=== PATIENT | female | born 1955 | race Two or more races ===

== ENCOUNTER 2017-05-11 22:00 | Inpatient (IN) | payer MEDICARE, OTHER ==
[~2017-05-11] VITALS: Ht 152.4 cm; Wt 107.4 kg
[2017-05-11 22:56] LABS: Basophils # (auto) 0 uL; Basophils % (auto) 0.3 % (0.0-2.0); CONDITION Y; DEFINITIVE SEE PRINTOUT; Eosinophils # (auto) 0 uL; Eosinophils % (auto) 0.5 % (0.0-7.0); Hematocrit 34.3 % (36.0-46.0); Hemoglobin 11.6 g/dL (12.2-16.2); Lymphocytes # (auto) 0.8 uL; Lymphocytes % (auto) 9.5 % (10.0-50.0); Mean Corpuscular Hemoglobin 34.3 pg (28.0-32.0); Mean Corpuscular Hgb Conc. 33.7 g/dL (32.0-36.0); Mean Corpuscular Volume 101.6 fL (80.0-100.0); Mean Platelet Volume 10.8 fL (7.4-10.4); Monocytes # (auto) 0.6 uL; Monocytes % (auto) 6.7 % (0.0-12.0); Neutrophils # (auto) 7.3 uL; Platelet Count (auto) 225 10^3/uL (140-450); Red Cell Distribution Width 13.5 % (11.6-16.0); White Blood Cell 8.8 10^3/uL (4.4-10.8)
[2017-05-11 23:15] LABS: Albumin 3.5 g/dL (3.4-5.0); Anion Gap 11 (5-15); Aspartate Aminotransferase 16 U/L (15-37); BUN/Creatinine Ratio 7.1; Blood Urea Nitrogen 29 mg/dL (7-18); Calcium 7.7 mg/dL (8.5-10.1); Carbon Dioxide 26 mmol/L (21-32); Chloride 98 mmol/L (98-107); GFR African American 14 mL/min; GFR Non-African American 12 mL/min; Glucose 250 mg/dL (74-106); Potassium 4.4 mmol/L (3.5-5.1); Sodium 135 mmol/L (136-145)
[2017-05-11 23:19] LABS: Alkaline Phosphatase 154 U/L (45-117); Bilirubin, Total 0.3 mg/dL (0.2-1.0); Total Protein 8.6 g/dL (6.4-8.2)
[2017-05-11 23:24] LABS: INR 0.98 (0.9-1.15); Partial Thromboplastin Time 29.4 sec (22.64-33.71); Prothrombin Time 10.7 sec (9.37-12.3)
[2017-05-11 23:31] LABS: Temperature: 21.7 C (20.0-25.0)
[2017-05-11] MEDS ORDERED: ACETAMINOPHEN 325 MG TAB PO ONE (23:45)
[2017-05-12] LABS: Lactic Acid w/Reflex 2.2 mmol/L (0.4-2.0)
[2017-05-12 00:02] LABS: REFLEX LACTIC ACID YES OR NO YES
[2017-05-12] MEDS ORDERED: cefTRIAXone 1GM/50ML D5W 50 ML IV ONE (02:45)
[2017-05-12] MEDS ORDERED: ACETAMINOPHEN 325 MG TAB PO ONE (05:15)
[2017-05-12] MEDS ORDERED: ONDANSETRON HCL 4 MG/2 ML VIAL IV PRN (06:15)
[2017-05-12] MEDS ORDERED: HYDROcodone-ACET 5/325MG TAB PO PRN (06:15)
[2017-05-12] MEDS ORDERED: VANCOMYCIN PER PHARMACY 0 MG IV SCH (06:15)
[2017-05-12] MEDS ORDERED: NITROGLYCERIN 0.4 MG SL TAB SL PRN (06:15)
[2017-05-12] MEDS ORDERED: TEMAZEPAM 15 MG CAP PO PRN (06:15)
[2017-05-12] MEDS ORDERED: MORPHINE SULF INJ 2 MG/ML SYRINGE 1ML IV PRN (06:15)
[2017-05-12] MEDS ORDERED: DEXTROSE (50%) 50ML SYRG IV PRN (06:15)
[2017-05-12 06:18] LABS: Urine RBC None Seen /hpf (0 - 4)
[2017-05-12] MEDS ORDERED: VANCOMYCIN 1,500 MG in SODIUM CHL 0.9% 250 ML IV ONE (06:45)
[2017-05-12 06:48] LABS: Urine Bilirubin Negative (Negative); Urine Blood Negative /uL (Negative); Urine Color Yellow (Yellow); Urine Ketone Negative (Negative); Urine Nitrite Negative (Negative); Urine Urobilinogen Normal (Negative); Urine pH 8.5 (5.0-8.0)
[2017-05-12 06:49] LABS: Urine Glucose 3+ mg/dL (Normal)
[2017-05-12 08:26] VITALS: BP 110/50
[2017-05-12 09:00] VITALS: BP 110/50
[2017-05-12] MEDS: cefTRIAXone 1GM/50ML D5W 50 ML IV SCH (09:27)
[2017-05-12] MEDS: SEVELAMER 800 MG TAB PO SCH ×3 (09:28→17:56)
[2017-05-12] MEDS: NIFEdipine ER 30 MG TAB PO SCH (09:51)
[2017-05-12] MEDS: PANTOPRAZOLE 40 MG TAB PO SCH (09:53)
[2017-05-12] MEDS: ENOXAPARIN SOD 30 MG/0.3 ML SYRINGE SC SCH (09:53)
[2017-05-12] MEDS: ACCU-CHEK COMFORT CURVE STRIP VI SCH ×3 (11:41→23:57)
[2017-05-12] MEDS: InsuLIN REG 1unit/0.01ml Soln (100units/ml) SC SCH ×3 (12:00→23:57)
[2017-05-12 13:00] VITALS: BP 126/82
[2017-05-12] MEDS: cloNIDine HCL 0.1 MG TAB PO SCH ×2 (14:11→21:45)
[2017-05-12 17:00] VITALS: BP 152/48
[2017-05-12] MEDS: FUROSEMIDE 20 MG TAB PO SCH (17:57)
[2017-05-12] MEDS: ACETAMINOPHEN 325 MG TAB PO PRN (18:30)
[2017-05-12 20:00] VITALS: BP 134/51
[2017-05-12] MEDS: ATORVASTATIN 20 MG TAB PO SCH (21:45)
[2017-05-12 22:06] VITALS: BP 134/51
[2017-05-13] MEDS: ACETAMINOPHEN 325 MG TAB PO PRN (03:50)
[2017-05-13 05:00] VITALS: BP 189/72
[2017-05-13] MEDS: FUROSEMIDE 20 MG TAB PO SCH ×2 (05:47→17:34)
[2017-05-13] MEDS: InsuLIN REG 1unit/0.01ml Soln (100units/ml) SC SCH ×3 (05:47→17:53)
[2017-05-13] MEDS: cloNIDine HCL 0.1 MG TAB PO SCH ×3 (05:47→22:00)
[2017-05-13] MEDS: ACCU-CHEK COMFORT CURVE STRIP VI SCH ×3 (05:48→17:53)
[2017-05-13 05:51] LABS: Basophils # (auto) 0 uL; Basophils % (auto) 0.2 % (0.0-2.0); CONDITION Y; Eosinophils # (auto) 0 uL; Eosinophils % (auto) 0.1 % (0.0-7.0); Hematocrit 30.5 % (36.0-46.0); Hemoglobin 10.6 g/dL (12.2-16.2); Lymphocytes # (auto) 0.6 uL; Lymphocytes % (auto) 5.4 % (10.0-50.0); Mean Corpuscular Hemoglobin 35.2 pg (28.0-32.0); Mean Corpuscular Hgb Conc. 34.8 g/dL (32.0-36.0); Mean Corpuscular Volume 101.3 fL (80.0-100.0); Mean Platelet Volume 10.9 fL (7.4-10.4); Monocytes # (auto) 0.7 uL; Monocytes % (auto) 5.6 % (0.0-12.0); Neutrophils # (auto) 10.5 uL; Neutrophils % (auto) 88.7 % (37.0-80.0); Platelet Count (auto) 183 10^3/uL (140-450); SUSPECT SEE PRINTOUT; White Blood Cell 11.9 10^3/uL (4.4-10.8)
[2017-05-13 06:16] LABS: Albumin 2.8 g/dL (3.4-5.0); BUN/Creatinine Ratio 7.9; Bilirubin, Total 0.3 mg/dL (0.2-1.0); Calcium 8.3 mg/dL (8.5-10.1); Potassium 4.4 mmol/L (3.5-5.1); Total Protein 7.2 g/dL (6.4-8.2)
[2017-05-13 08:00] VITALS: BP 165/69
[2017-05-13 08:55] VITALS: BP 165/69
[2017-05-13] MEDS: cefTRIAXone 1GM/50ML D5W 50 ML IV SCH (08:56)
[2017-05-13] MEDS: SEVELAMER 800 MG TAB PO SCH ×3 (08:57→17:53)
[2017-05-13] MEDS: ENOXAPARIN SOD 30 MG/0.3 ML SYRINGE SC SCH (09:27)
[2017-05-13] MEDS: PANTOPRAZOLE 40 MG TAB PO SCH (09:27)
[2017-05-13] MEDS: NIFEdipine ER 30 MG TAB PO SCH (09:29)
[2017-05-13 12:42] VITALS: BP 194/72
[2017-05-13] MEDS ORDERED: INSLANTI SC (16:13)
[2017-05-13] MEDS ORDERED: CINA30TA2 PO (16:30)
[2017-05-13] MEDS ORDERED: SEVE800T8 PO (16:30)
[2017-05-13] MEDS ORDERED: [UNRECOGNIZED DRUG - CODE] PO (16:30)
[2017-05-13] MEDS ORDERED: SIMV-8 PO (16:30)
[2017-05-13] MEDS ORDERED: TRAM50TA2 PO (16:30)
[2017-05-13] MEDS ORDERED: FUR20T PO (16:30)
[2017-05-13] MEDS ORDERED: CLON0.2T PO (16:30)
[2017-05-13] MEDS ORDERED: NIFE90TA25 PO (16:30)
[2017-05-13] MEDS ORDERED: GABA-497 PO (16:30)
[2017-05-13] MEDS ORDERED: FERR1TAB17 PO (16:30)
[2017-05-13 17:27] VITALS: BP 107/44
[2017-05-13] MEDS ORDERED: VANCOMYCIN 1GM/250ML D5W 250 ML IV ONE (20:00)
[2017-05-13 22:00] VITALS: BP 104/51
[2017-05-13] MEDS: ATORVASTATIN 20 MG TAB PO SCH (23:17)
[2017-05-14] MEDS: ACCU-CHEK COMFORT CURVE STRIP VI SCH ×4 (00:15→17:31)
[2017-05-14] MEDS: InsuLIN REG 1unit/0.01ml Soln (100units/ml) SC SCH ×4 (00:15→17:31)
[2017-05-14 05:00] VITALS: BP 119/50
[2017-05-14] MEDS: cloNIDine HCL 0.1 MG TAB PO SCH ×3 (06:00→22:07)
[2017-05-14 06:12] LABS: Albumin 2.8 g/dL (3.4-5.0); BUN/Creatinine Ratio 6.4; Bilirubin, Total 0.4 mg/dL (0.2-1.0); Calcium 8.6 mg/dL (8.5-10.1); Total Protein 7.5 g/dL (6.4-8.2)
[2017-05-14 06:20] LABS: Potassium 3.9 mmol/L (3.5-5.1)
[2017-05-14] MEDS: FUROSEMIDE 20 MG TAB PO SCH ×2 (06:44→17:30)
[2017-05-14] MEDS: SEVELAMER 800 MG TAB PO SCH ×3 (08:03→17:31)
[2017-05-14 09:00] VITALS: BP 113/62
[2017-05-14] MEDS: ENOXAPARIN SOD 30 MG/0.3 ML SYRINGE SC SCH (10:47)
[2017-05-14] MEDS: PANTOPRAZOLE 40 MG TAB PO SCH (10:47)
[2017-05-14] MEDS: NIFEdipine ER 30 MG TAB PO SCH (10:47)
[2017-05-14] MEDS ORDERED: ceFAZolin 1GM 2 GM in D5W 5% 100 ML IV ONE (12:30)
[2017-05-14] MEDS ORDERED: ceFAZolin 1GM/50ML D5W 50 ML IV ONE (12:30)
[2017-05-14 13:19] VITALS: BP 164/57
[2017-05-14 17:00] VITALS: BP 141/73
[2017-05-14 21:44] VITALS: BP 129/50
[2017-05-14] MEDS: ATORVASTATIN 20 MG TAB PO SCH (22:07)
[2017-05-15] MEDS: ACETAMINOPHEN 325 MG TAB PO PRN ×2 (01:22→20:12)
[2017-05-15 05:00] VITALS: BP 127/45
[2017-05-15] MEDS: ACCU-CHEK COMFORT CURVE STRIP VI SCH ×5 (06:00→23:59)
[2017-05-15] MEDS: InsuLIN REG 1unit/0.01ml Soln (100units/ml) SC SCH ×5 (06:00→23:59)
[2017-05-15] MEDS: cloNIDine HCL 0.1 MG TAB PO SCH ×3 (06:58→21:32)
[2017-05-15] MEDS: FUROSEMIDE 20 MG TAB PO SCH ×2 (06:58→18:24)
[2017-05-15 08:00] VITALS: BP 127/45
[2017-05-15 08:40] LABS: Potassium 4.1 mmol/L (3.5-5.1)
[2017-05-15 08:41] LABS: Albumin 2.8 g/dL (3.4-5.0); BUN/Creatinine Ratio 7.8; Bilirubin, Total 0.2 mg/dL (0.2-1.0); Calcium 8.3 mg/dL (8.5-10.1); Total Protein 7.5 g/dL (6.4-8.2)
[2017-05-15 09:00] VITALS: BP 143/58
[2017-05-15] MEDS: NIFEdipine ER 30 MG TAB PO SCH (09:48)
[2017-05-15] MEDS: SEVELAMER 800 MG TAB PO SCH ×3 (09:48→18:24)
[2017-05-15] MEDS: PANTOPRAZOLE 40 MG TAB PO SCH (09:49)
[2017-05-15] MEDS: ENOXAPARIN SOD 30 MG/0.3 ML SYRINGE SC SCH (09:50)
[2017-05-15] MEDS ORDERED: EPOETIN ALFA 10,000 UNIT/1 ML VIAL IV ONE (10:45)
[2017-05-15 12:05] VITALS: BP 152/65
[2017-05-15 16:31] VITALS: BP 139/71
[2017-05-15 16:37] LABS: Basophils # (auto) 0 uL; Basophils % (auto) 0.3 % (0.0-2.0); CONDITION Y; Eosinophils # (auto) 0.1 uL; Eosinophils % (auto) 0.9 % (0.0-7.0); Hematocrit 33.8 % (36.0-46.0); Hemoglobin 11.7 g/dL (12.2-16.2); Lymphocytes # (auto) 1.7 uL; Lymphocytes % (auto) 27.3 % (10.0-50.0); Mean Corpuscular Hemoglobin 34.4 pg (28.0-32.0); Mean Corpuscular Hgb Conc. 34.5 g/dL (32.0-36.0); Mean Corpuscular Volume 99.7 fL (80.0-100.0); Mean Platelet Volume 11.3 fL (7.4-10.4); Monocytes # (auto) 0.5 uL; Monocytes % (auto) 8.3 % (0.0-12.0); Neutrophils # (auto) 3.9 uL; Neutrophils % (auto) 63.2 % (37.0-80.0); Platelet Count (auto) 218 10^3/uL (140-450); Red Cell Distribution Width 13.5 % (11.6-16.0); White Blood Cell 6.1 10^3/uL (4.4-10.8)
[2017-05-15 16:46] LABS: INR 0.9 (0.9-1.15); Partial Thromboplastin Time 29.2 sec (22.64-33.71); Prothrombin Time 9.8 sec (9.37-12.3)
[2017-05-15] MEDS: ATORVASTATIN 20 MG TAB PO SCH (21:31)
[2017-05-15 22:00] VITALS: BP 149/60
[2017-05-16 05:00] VITALS: BP 153/75
[2017-05-16] MEDS: InsuLIN REG 1unit/0.01ml Soln (100units/ml) SC SCH ×4 (06:00→23:56)
[2017-05-16] MEDS: cloNIDine HCL 0.1 MG TAB PO SCH ×3 (06:01→21:46)
[2017-05-16] MEDS: FUROSEMIDE 20 MG TAB PO SCH ×2 (06:01→18:06)
[2017-05-16] MEDS: ACCU-CHEK COMFORT CURVE STRIP VI SCH ×4 (06:40→23:47)
[2017-05-16 08:00] VITALS: BP 153/75
[2017-05-16 09:00] VITALS: BP 125/52
[2017-05-16] MEDS ORDERED: diphenhdrAMINE HCL 50 MG/1 ML VL IV ONE (10:00)
[2017-05-16] MEDS ORDERED: LIDOCAINE VISCOUS 2% 15ML UD PO ONE (10:00)
[2017-05-16] MEDS ORDERED: fentaNYL CITRATE 100 MCG/2 ML VL IV ONE (10:00)
[2017-05-16] MEDS ORDERED: MIDAZOLAM HCL 1MG/1ML-2 ML VIAL IV ONE ×2 (10:00)
[2017-05-16] MEDS ORDERED: FLUMAZENIL 0.1 MG/ML INJ 10ML MDV IV ONE (10:04)
[2017-05-16] MEDS ORDERED: NALOXONE HCL 0.4 MG/ML VIAL ONE (10:04)
[2017-05-16] MEDS: SEVELAMER 800 MG TAB PO SCH ×3 (11:58→18:06)
[2017-05-16] MEDS: PANTOPRAZOLE 40 MG TAB PO SCH (11:58)
[2017-05-16] MEDS: NIFEdipine ER 30 MG TAB PO SCH (11:59)
[2017-05-16] MEDS: ENOXAPARIN SOD 30 MG/0.3 ML SYRINGE SC SCH (12:00)
[2017-05-16 13:40] VITALS: BP 138/69
[2017-05-16 17:06] VITALS: BP 165/60
[2017-05-16] MEDS: ATORVASTATIN 20 MG TAB PO SCH (21:46)
[2017-05-16 22:00] VITALS: BP 145/56
[2017-05-17 05:00] VITALS: BP 136/67
[2017-05-17] MEDS: ACCU-CHEK COMFORT CURVE STRIP VI SCH ×2 (05:33→12:00)
[2017-05-17] MEDS: FUROSEMIDE 20 MG TAB PO SCH (05:33)
[2017-05-17] MEDS: cloNIDine HCL 0.1 MG TAB PO SCH (05:33)
[2017-05-17] MEDS: InsuLIN REG 1unit/0.01ml Soln (100units/ml) SC SCH ×2 (05:36→12:09)
[2017-05-17] MEDS: SEVELAMER 800 MG TAB PO SCH ×2 (08:27→12:00)
[2017-05-17 09:00] VITALS: BP 106/57
[2017-05-17] MEDS ORDERED: CEPHALEXIN 250 MG CAP PO SCH ×2 (12:00→14:00)
[2017-05-17] MEDS: ENOXAPARIN SOD 30 MG/0.3 ML SYRINGE SC SCH (12:08)
[2017-05-17] MEDS: NIFEdipine ER 30 MG TAB PO SCH (12:09)
[2017-05-17] MEDS: PANTOPRAZOLE 40 MG TAB PO SCH (12:09)
[2017-05-17 12:14] VITALS: BP 151/95
[2017-05-17 13:44] VITALS: BP 147/89
== END 2017-05-17 13:25 | disposition home or self-care (01) | DRG 314 ==
LOC: ER 22:07 → TELE 22:08 → TELE-WESTW 05-12 08:26
PROVIDERS: ADMIT Internal Medicine; ATTEND Internal Medicine Pulmonary Disease
PROC: 5A1D60Z (ICD-10-PCS; 2017-05-13)
PROC: B246ZZ4 Ultrasonography of Right and Left Heart, Transesophageal (ICD-10-PCS; principal; 2017-05-16)
DX: T82.7XXA Infection and inflammatory reaction due to other cardiac and vascular devices, implants and grafts, initial encounter (principal); N18.6 End stage renal disease; A41.01 Sepsis due to Methicillin susceptible Staphylococcus aureus; N10 Acute pyelonephritis; E87.1 Hypo-osmolality and hyponatremia; I13.2 Hypertensive heart and chronic kidney disease with heart failure and with stage 5 chronic kidney disease, or end stage renal disease; Z68.42 Body mass index [BMI] 45.0-49.9, adult; E44.0 Moderate protein-calorie malnutrition; D63.8 Anemia in other chronic diseases classified elsewhere; E66.01 Morbid (severe) obesity due to excess calories; I72.2 Aneurysm of renal artery; K42.9 Umbilical hernia without obstruction or gangrene; D63.1 Anemia in chronic kidney disease; E11.22 Type 2 diabetes mellitus with diabetic chronic kidney disease; E11.65 Type 2 diabetes mellitus with hyperglycemia; E78.5 Hyperlipidemia, unspecified; I34.0 Nonrheumatic mitral (valve) insufficiency; I50.9 Heart failure, unspecified; Z82.49 Family history of ischemic heart disease and other diseases of the circulatory system; Z99.2 Dependence on renal dialysis; Z83.3 Family history of diabetes mellitus; Z89.429 Acquired absence of other toe(s), unspecified side; Y83.9 Surgical procedure, unspecified as the cause of abnormal reaction of the patient, or of later complication, without mention of misadventure at the time of the procedure
CPT/HCPCS: 36415; 71010; 74176; 80053; 80202; 81001; 82962; 83036; 83605; 83735; 83880; 84484; 85025; 85610; 85730; 87040; 87077; 87147; 87186; 90935; 93005; 93312; 96365; 96375; J0690; J0696; J0885; J1815; J2250; J7060

== ENCOUNTER 2017-11-19 16:52 | Inpatient (IN) | payer MEDICARE ==
[~2017-11-19] VITALS: Ht 149.9 cm; Wt 106.6 kg
[~2017-11-19 16:52] MED LIST: CINA30TA2 PO; CLON0.2T PO; FERR1TAB17 PO; FUR20T PO; GABA300C10 PO; INSLANTI SC; NIFE90TA25 PO; SEVE800T8 PO; SIMV-8 PO; TRAM50TA2 PO; [UNRECOGNIZED DRUG - CODE] PO
[2017-11-19 18:30] LABS: Basophils # (auto) 0.1 uL; Basophils % (auto) 0.7 % (0.0-2.0); Eosinophils # (auto) 0.1 uL; Eosinophils % (auto) 1.2 % (0.0-7.0); Hematocrit 33.8 % (36.0-46.0); Hemoglobin 11.4 g/dL (12.2-16.2); Lymphocytes # (auto) 1.4 uL; Lymphocytes % (auto) 18.4 % (10.0-50.0); Mean Corpuscular Hemoglobin 33.7 pg (28.0-32.0); Mean Corpuscular Hgb Conc. 33.7 g/dL (32.0-36.0); Monocytes # (auto) 0.6 uL; Monocytes % (auto) 7.4 % (0.0-12.0); Neutrophils # (auto) 5.5 uL; Neutrophils % (auto) 72.3 % (37.0-80.0); Nucleated Red Blood Cells % 0.2 %; Platelet Count (auto) 239 10^3/uL (140-450); Red Blood Cells 3.38 10^6/uL (4.0-5.20); Red Cell Distribution Width 13.4 % (11.8-14.3); White Blood Cell 7.6 10^3/uL (4.4-10.8)
[2017-11-19 18:57] LABS: Alanine Aminotransferase 23 U/L (13-56); Albumin 3.5 g/dL (3.4-5.0); Alkaline Phosphatase 153 U/L (45-117); Anion Gap 13 (5-15); Aspartate Aminotransferase 19 U/L (15-37); BUN/Creatinine Ratio 8.7; Bilirubin, Total 0.3 mg/dL (0.2-1.0); Blood Urea Nitrogen 36 mg/dL (7-18); Carbon Dioxide 26 mmol/L (21-32); Chloride 96 mmol/L (98-107); GFR African American 14 mL/min; GFR Non-African American 12 mL/min; Glucose 125 mg/dL (74-106); Magnesium 2.5 mg/dL (1.6-2.6); Potassium 4.2 mmol/L (3.5-5.1); Sodium 135 mmol/L (136-145); Total Protein 8.7 g/dL (6.4-8.2)
[2017-11-19] MEDS ORDERED: SODIUM CHLORIDE 0.9% 1,000 ML IV ONE (21:45)
[2017-11-20] MEDS ORDERED: KETOROLAC TROMETH 30 MG/ML 1ML VIAL IV ONE (01:00)
[2017-11-20] MEDS ORDERED: cloNIDine HCL 0.1 MG TAB ONE (01:45)
[2017-11-20] MEDS ORDERED: cloNIDine HCL 0.1 MG TAB PO ONE ×2 (01:45→19:00)
[2017-11-20] MEDS ORDERED: MORPHINE SULFATE 4 MG/ML SYR/VIAL IV PRN (05:00)
[2017-11-20] MEDS ORDERED: ONDANSETRON HCL 4 MG/2 ML VIAL IV PRN (05:00)
[2017-11-20] MEDS ORDERED: DEXTROSE (50%) 50ML SYRG IV PRN (05:00)
[2017-11-20] MEDS ORDERED: cloNIDine HCL 0.1 MG TAB PO PRN (05:00)
[2017-11-20] MEDS ORDERED: TEMAZEPAM 15 MG CAP PO PRN (05:00)
[2017-11-20] MEDS ORDERED: HYDROcodone-ACET 5/325MG TAB PO PRN (05:00)
[2017-11-20] MEDS ORDERED: ACETAMINOPHEN 325 MG TAB PO PRN (05:00)
[2017-11-20] MEDS ORDERED: FUROSEMIDE 20 MG TAB PO SCH (06:00)
[2017-11-20] MEDS ORDERED: cloNIDine HCL 0.1 MG TAB PO SCH (06:00)
[2017-11-20] MEDS: InsuLIN REG 1unit/0.01ml Soln (100units/ml) SC SCH ×3 (06:00→17:35)
[2017-11-20] MEDS: ACCU-CHEK COMFORT CURVE STRIP VI SCH ×3 (06:21→17:36)
[2017-11-20 09:00] VITALS: BP 170/88
[2017-11-20] MEDS ORDERED: PANTOPRAZOLE 40 MG/10 ML VIAL IV SCH (10:00)
[2017-11-20] MEDS: NIFEdipine ER 30 MG TAB PO SCH (10:00)
[2017-11-20] MEDS ORDERED: HEPARIN SODIUM (PORCINE) 5000 UNITS/ML 1ML VIAL SC SCH (10:00)
[2017-11-20] MEDS: DOCUSATE SOD 100 MG CAP PO SCH ×2 (10:30→22:00)
[2017-11-20] MEDS ORDERED: GASTROGRAFIN 120 ML SOL ONE (11:11)
[2017-11-20] MEDS: cloNIDine HCL 0.1 MG TAB PO SCH ×2 (13:34→23:01)
[2017-11-20 14:00] VITALS: BP 170/91
[2017-11-20 17:00] VITALS: BP 202/77
[2017-11-20] MEDS ORDERED: ASPI81TA27 PO (17:43)
[2017-11-20] MEDS ORDERED: LABETALOL HCL 5 MG/ML ML 20ML VIAL IV PRN (19:00)
[2017-11-20] MEDS ORDERED: NIFEdipine 10 MG CAP PO ONE (19:00)
[2017-11-20] MEDS ORDERED: ATORVASTATIN 20 MG TAB PO SCH (22:00)
[2017-11-20] MEDS: PANTOPRAZOLE 40 MG TAB PO SCH (22:21)
[2017-11-20 23:10] VITALS: BP 178/66
[2017-11-21 05:10] VITALS: BP 145/56
[2017-11-21] MEDS: ACCU-CHEK COMFORT CURVE STRIP VI SCH ×4 (06:00→18:27)
[2017-11-21] MEDS: InsuLIN REG 1unit/0.01ml Soln (100units/ml) SC SCH ×4 (06:00→18:00)
[2017-11-21] MEDS ORDERED: cloNIDine HCL 0.1 MG TAB PO SCH (06:00)
[2017-11-21 06:22] LABS: Potassium 3.8 mmol/L (3.5-5.1)
[2017-11-21 06:29] LABS: Albumin 3.1 g/dL (3.4-5.0); BUN/Creatinine Ratio 7.9
[2017-11-21 06:32] LABS: Bilirubin, Total 0.4 mg/dL (0.2-1.0); Total Protein 7.2 g/dL (6.4-8.2)
[2017-11-21 06:36] LABS: Basophils # (auto) 0.1 uL; Basophils % (auto) 1.1 % (0.0-2.0); Eosinophils # (auto) 0.1 uL; Eosinophils % (auto) 1.9 % (0.0-7.0); Hematocrit 33.1 % (36.0-46.0); Hemoglobin 10.9 g/dL (12.2-16.2); Lymphocytes # (auto) 1.5 uL; Mean Corpuscular Hemoglobin 33.4 pg (28.0-32.0); Mean Corpuscular Hgb Conc. 32.8 g/dL (32.0-36.0); Mean Corpuscular Volume 101.8 fL (80.0-100.0); Monocytes # (auto) 0.6 uL; Monocytes % (auto) 9.5 % (0.0-12.0); Neutrophils # (auto) 3.7 uL; Neutrophils % (auto) 62.5 % (37.0-80.0); Nucleated Red Blood Cells % 0.1 %; Red Blood Cells 3.25 10^6/uL (4.0-5.20); Red Cell Distribution Width 13.8 % (11.8-14.3)
[2017-11-21] MEDS: cloNIDine HCL 0.1 MG TAB PO SCH ×2 (06:49→14:04)
[2017-11-21 08:00] VITALS: BP 132/70
[2017-11-21 08:16] LABS: INR 0.99 (0.9-1.15); Partial Thromboplastin Time 28.6 sec (22.64-33.71); Prothrombin Time 10.8 sec (9.37-12.3)
[2017-11-21] MEDS ORDERED: LIDOCAINE VISCOUS 2% 15ML UD ONE (08:17)
[2017-11-21] MEDS ORDERED: MIDAZOLAM HCL 5 MG/ML-1ML VIAL ONE (08:17)
[2017-11-21] MEDS ORDERED: diphenhdrAMINE HCL 50 MG/1 ML VL ONE (08:17)
[2017-11-21] MEDS ORDERED: fentaNYL CITRATE 100 MCG/2 ML VL ONE (08:17)
[2017-11-21] MEDS ORDERED: SODIUM CHLORIDE LOCK 10 ML ONE (08:19)
[2017-11-21 08:35] VITALS: BP 132/70
[2017-11-21 08:37] LABS: Platelet Count (auto) 215 10^3/uL (140-450)
[2017-11-21] MEDS ORDERED: SODIUM CHL 0.9% 1000 ML BAG XX ONE (10:15)
[2017-11-21] MEDS: PANTOPRAZOLE 40 MG TAB PO SCH (10:59)
[2017-11-21] MEDS: NIFEdipine ER 30 MG TAB PO SCH (10:59)
[2017-11-21] MEDS: DOCUSATE SOD 100 MG CAP PO SCH (11:00)
[2017-11-21 13:00] VITALS: BP 150/79
[2017-11-21 17:09] VITALS: BP 162/72
[2017-11-21 18:03] VITALS: BP 162/72
== END 2017-11-21 20:14 | disposition home or self-care (01) | DRG 383 ==
LOC: ER 17:02 → OVERFLOW 17:03 → CENTRAL 11-20 08:55
PROVIDERS: ADMIT Nurse Practitioner; ATTEND Family Medicine
PROC: 5A1D70Z Performance of Urinary Filtration, Intermittent, Less than 6 Hours Per Day (ICD-10-PCS; 2017-11-21)
PROC: 0DB68ZX Excision of Stomach, Via Natural or Artificial Opening Endoscopic, Diagnostic (ICD-10-PCS; principal; 2017-11-21 09:45)
DX: K25.9 Gastric ulcer, unspecified as acute or chronic, without hemorrhage or perforation (principal); N18.6 End stage renal disease; I13.2 Hypertensive heart and chronic kidney disease with heart failure and with stage 5 chronic kidney disease, or end stage renal disease; E11.22 Type 2 diabetes mellitus with diabetic chronic kidney disease; E66.01 Morbid (severe) obesity due to excess calories; Z68.42 Body mass index [BMI] 45.0-49.9, adult; K29.70 Gastritis, unspecified, without bleeding; K29.80 Duodenitis without bleeding; E21.3 Hyperparathyroidism, unspecified; K26.9 Duodenal ulcer, unspecified as acute or chronic, without hemorrhage or perforation; D64.9 Anemia, unspecified; E78.5 Hyperlipidemia, unspecified; R51 Headache; I50.9 Heart failure, unspecified; K59.00 Constipation, unspecified; Z82.49 Family history of ischemic heart disease and other diseases of the circulatory system; Z83.3 Family history of diabetes mellitus; Z99.2 Dependence on renal dialysis; Z79.899 Other long term (current) drug therapy; Z79.4 Long term (current) use of insulin
CPT/HCPCS: 36415; 43239; 70450; 71045; 74176; 74250; 80053; 82962; 83735; 83880; 84484; 85025; 85610; 85730; 87400; 90935; 93005; 96361; 96374; J1642; J1815; J1885; J2250

== ENCOUNTER 2017-12-03 05:24 | Inpatient (IN) | payer MEDICARE ==
[~2017-12-03] VITALS: Ht 149.9 cm; Wt 107.3 kg
[~2017-12-03 05:24] MED LIST changes: +ASPI81TA27 PO
[2017-12-03 06:11] LABS: Basophils # (auto) 0.1 uL; Basophils % (auto) 0.6 % (0.0-2.0); Eosinophils # (auto) 0.1 uL; Eosinophils % (auto) 1.5 % (0.0-7.0); Hematocrit 30.8 % (36.0-46.0); Hemoglobin 10.3 g/dL (12.2-16.2); Lymphocytes # (auto) 1.3 uL; Lymphocytes % (auto) 14.2 % (10.0-50.0); Mean Corpuscular Hemoglobin 33.7 pg (28.0-32.0); Mean Corpuscular Hgb Conc. 33.5 g/dL (32.0-36.0); Mean Corpuscular Volume 100.6 fL (80.0-100.0); Monocytes # (auto) 0.8 uL; Monocytes % (auto) 8.6 % (0.0-12.0); Neutrophils # (auto) 6.8 uL; Neutrophils % (auto) 75.1 % (37.0-80.0); Platelet Count (auto) 206 10^3/uL (140-450); Red Blood Cells 3.06 10^6/uL (4.0-5.20); Red Cell Distribution Width 13.4 % (11.8-14.3)
[2017-12-03 06:34] LABS: Alanine Aminotransferase 19 U/L (13-56); Albumin 3.3 g/dL (3.4-5.0); Amylase 89 U/L (25-115); Anion Gap 9 (5-15); Aspartate Aminotransferase 14 U/L (15-37); BUN/Creatinine Ratio 8.8; Blood Urea Nitrogen 70 mg/dL (7-18); Carbon Dioxide 26 mmol/L (21-32); Chloride 100 mmol/L (98-107); GFR African American 7 mL/min; GFR Non-African American 5 mL/min; Glucose 83 mg/dL (74-106); Lipase 410 U/L (73-393); Magnesium 2.8 mg/dL (1.6-2.6); Potassium 4.9 mmol/L (3.5-5.1); Sodium 135 mmol/L (136-145)
[2017-12-03 06:39] LABS: Alkaline Phosphatase 142 U/L (45-117); Bilirubin, Total 0.3 mg/dL (0.2-1.0); Total Protein 7.8 g/dL (6.4-8.2)
[2017-12-03] MEDS ORDERED: DEXTROSE (50%) 50ML SYRG IV ONE (08:00)
[2017-12-03] MEDS ORDERED: LACTULOSE 20Gm/30ML SOLN PO PRN (11:30)
[2017-12-03] MEDS ORDERED: DEXTROSE (50%) 50ML SYRG IV PRN (11:30)
[2017-12-03] MEDS ORDERED: TEMAZEPAM 15 MG CAP PO PRN (11:30)
[2017-12-03] MEDS ORDERED: cloNIDine HCL 0.1 MG TAB PO PRN (11:30)
[2017-12-03] MEDS ORDERED: DOCUSATE SOD 100 MG CAP PO PRN (11:30)
[2017-12-03] MEDS: ACCU-CHEK COMFORT CURVE STRIP VI SCH ×3 (11:34→21:15)
[2017-12-03] MEDS: FLEET ENEMA(ADULT) 135 ML PR ONE ×2 (11:45→17:16)
[2017-12-03] MEDS ORDERED: GABAPENTIN 300 MG CAP PO ONE (11:45)
[2017-12-03] MEDS ORDERED: ASPirin-EC 81 mg tab PO ONE (11:45)
[2017-12-03] MEDS ORDERED: SEVELAMER 800 MG TAB PO SCH (12:00)
[2017-12-03] MEDS: Boost Glucose Control 8 Ounces PO SCH ×2 (12:03→18:01)
[2017-12-03] MEDS: InsuLIN REG 1unit/0.01ml Soln (100units/ml) SC SCH ×3 (12:07→21:26)
[2017-12-03] MEDS: SODIUM CHLOR 0.9% PF (SALINE LOCK) 10ML VIAL IV SCH ×2 (14:22→21:14)
[2017-12-03] MEDS: DOCUSATE SOD 100 MG CAP PO SCH ×2 (16:17→21:13)
[2017-12-03] MEDS: cloNIDine HCL 0.1 MG TAB PO SCH ×2 (16:17→21:12)
[2017-12-03] MEDS ORDERED: LORazepam 0.5 MG TAB PO PRN (16:30)
[2017-12-03 16:50] LABS: Urine Amorphous Crystal FEW /hpf (None Seen); Urine Bacteria FEW /hpf (None Seen); Urine Blood 1+ /uL (Negative); Urine WBC 56 /hpf (0 - 5)
[2017-12-03] MEDS ORDERED: FERROUS SULFATE 325 MG TAB PO SCH (18:00)
[2017-12-03] MEDS ORDERED: FUROSEMIDE 20 MG TAB PO SCH (18:00)
[2017-12-03 19:45] VITALS: BP 157/74
[2017-12-03] MEDS ORDERED: cefTRIAXone 1GM/10ml IVPUSH 10 ML IV ONE (20:00)
[2017-12-03] MEDS: traMADol HCL 50 MG TAB PO PRN (21:13)
[2017-12-03] MEDS: ATORVASTATIN 20 MG TAB PO SCH (21:13)
[2017-12-03] MEDS: PANTOPRAZOLE 40 MG TAB PO SCH (21:13)
[2017-12-03] MEDS: SENNA 8.6 MG TAB PO SCH (21:14)
[2017-12-03] MEDS: INSULIN LANTUS (GLARGINE) 1 /0.01ml (100units/ml) SC SCH (21:15)
[2017-12-03 22:00] VITALS: BP 157/74
[2017-12-03] MEDS ORDERED: FAMOTIDINE 20 MG TAB PO SCH (22:00)
[2017-12-04] VITALS (7 sets, daily range): BP systolic 114–170; BP diastolic 49–68
[2017-12-04] MEDS: ACETAMINOPHEN 325 MG TAB PO PRN ×2 (04:49→16:39)
[2017-12-04] MEDS: SODIUM CHLOR 0.9% PF (SALINE LOCK) 10ML VIAL IV SCH ×3 (05:55→22:13)
[2017-12-04] MEDS: cloNIDine HCL 0.1 MG TAB PO SCH ×3 (05:57→22:43)
[2017-12-04] MEDS: traMADol HCL 50 MG TAB PO PRN ×2 (06:03→22:33)
[2017-12-04] MEDS: ACCU-CHEK COMFORT CURVE STRIP VI SCH ×4 (06:13→22:14)
[2017-12-04] MEDS: InsuLIN REG 1unit/0.01ml Soln (100units/ml) SC SCH ×4 (06:14→22:30)
[2017-12-04 06:58] LABS: Basophils # (auto) 0 uL; Monocytes # (auto) 0.6 uL; Red Blood Cells 2.57 10^6/uL (4.0-5.20)
[2017-12-04 07:01] LABS: Basophils % (auto) 0.7 % (0.0-2.0); Eosinophils # (auto) 0.1 uL; Eosinophils % (auto) 0.8 % (0.0-7.0); Hematocrit 25.7 % (36.0-46.0); Hemoglobin 8.7 g/dL (12.2-16.2); Lymphocytes # (auto) 0.9 uL; Lymphocytes % (auto) 12.2 % (10.0-50.0); Mean Corpuscular Hemoglobin 33.9 pg (28.0-32.0); Mean Corpuscular Hgb Conc. 33.9 g/dL (32.0-36.0); Mean Corpuscular Volume 100.2 fL (80.0-100.0); Monocytes % (auto) 8.8 % (0.0-12.0); Neutrophils # (auto) 5.5 uL; Neutrophils % (auto) 77.5 % (37.0-80.0); Platelet Count (auto) 161 10^3/uL (140-450); Red Cell Distribution Width 13.2 % (11.8-14.3); White Blood Cell 7.1 10^3/uL (4.4-10.8)
[2017-12-04 07:19] LABS: Albumin 2.7 g/dL (3.4-5.0); BUN/Creatinine Ratio 9.7; Bilirubin, Total 0.4 mg/dL (0.2-1.0); Calcium 7.6 mg/dL (8.5-10.1); Potassium 4.6 mmol/L (3.5-5.1); Total Protein 6.9 g/dL (6.4-8.2)
[2017-12-04] MEDS: PANTOPRAZOLE 40 MG TAB PO SCH ×2 (09:19→22:14)
[2017-12-04] MEDS: NIFEdipine ER 30 MG TAB PO SCH (09:20)
[2017-12-04] MEDS: DOCUSATE SOD 100 MG CAP PO SCH ×2 (09:20→22:13)
[2017-12-04] MEDS: Boost Glucose Control 8 Ounces PO SCH ×3 (09:21→17:46)
[2017-12-04] MEDS: cefTRIAXone 1GM/10ml IVPUSH 10 ML IV SCH (09:21)
[2017-12-04] MEDS: MULTIPLE VITAMIN TAB PO SCH (09:21)
[2017-12-04] MEDS ORDERED: EPOETIN ALFA 10,000 UNIT/1 ML VIAL IV ONE (09:30)
[2017-12-04] MEDS ORDERED: GABAPENTIN 300 MG CAP PO SCH (10:00)
[2017-12-04] MEDS ORDERED: ASPirin-EC 81 mg tab PO SCH (10:00)
[2017-12-04] MEDS ORDERED: PATIENTS OWN MEDICATION PO SCH (10:00)
[2017-12-04] MEDS: CINACALCET HYDROCHLORIDE 30 MG TAB PO SCH (10:00)
[2017-12-04] MEDS ORDERED: VANCOMYCIN PER PHARMACY 0 MG IV SCH (14:00)
[2017-12-04] MEDS: ONDANSETRON HCL 4 MG/2 ML VIAL IV PRN (16:42)
[2017-12-04] MEDS ORDERED: VANCOMYCIN 1,250 MG in D5W 5% 250 ML IV ONE (17:00)
[2017-12-04] MEDS: ATORVASTATIN 20 MG TAB PO SCH (22:14)
[2017-12-04] MEDS: SENNA 8.6 MG TAB PO SCH (22:14)
[2017-12-04] MEDS: INSULIN LANTUS (GLARGINE) 1 /0.01ml (100units/ml) SC SCH (22:30)
[2017-12-05 01:12] LABS: Basophils # (auto) 0.1 uL; Basophils % (auto) 1.3 % (0.0-2.0); Eosinophils # (auto) 0 uL; Eosinophils % (auto) 0.1 % (0.0-7.0); Hematocrit 26.4 % (36.0-46.0); Lymphocytes # (auto) 0.9 uL; Lymphocytes % (auto) 8.8 % (10.0-50.0); Mean Corpuscular Hemoglobin 33.7 pg (28.0-32.0); Mean Corpuscular Hgb Conc. 33.9 g/dL (32.0-36.0); Mean Corpuscular Volume 99.4 fL (80.0-100.0); Monocytes # (auto) 1.1 uL; Monocytes % (auto) 10.9 % (0.0-12.0); Neutrophils # (auto) 7.7 uL; Neutrophils % (auto) 78.9 % (37.0-80.0); Platelet Count (auto) 148 10^3/uL (140-450); Red Blood Cells 2.66 10^6/uL (4.0-5.20); Red Cell Distribution Width 13.4 % (11.8-14.3); White Blood Cell 9.8 10^3/uL (4.4-10.8)
[2017-12-05 01:31] LABS: Albumin 2.7 g/dL (3.4-5.0); BUN/Creatinine Ratio 8.3; Calcium 7.7 mg/dL (8.5-10.1); Potassium 4.7 mmol/L (3.5-5.1)
[2017-12-05 01:34] LABS: Bilirubin, Total 0.4 mg/dL (0.2-1.0); Total Protein 7.2 g/dL (6.4-8.2)
[2017-12-05 05:00] VITALS: BP 116/44
[2017-12-05] MEDS: cloNIDine HCL 0.1 MG TAB PO SCH ×2 (06:00→14:56)
[2017-12-05] MEDS: SODIUM CHLOR 0.9% PF (SALINE LOCK) 10ML VIAL IV SCH (06:11)
[2017-12-05] MEDS: InsuLIN REG 1unit/0.01ml Soln (100units/ml) SC SCH ×2 (06:12→12:30)
[2017-12-05] MEDS: ACCU-CHEK COMFORT CURVE STRIP VI SCH ×2 (06:13→12:27)
[2017-12-05] MEDS: Boost Glucose Control 8 Ounces PO SCH ×2 (08:00→13:04)
[2017-12-05 09:00] VITALS: BP 128/62
[2017-12-05] MEDS: cefTRIAXone 1GM/10ml IVPUSH 10 ML IV SCH (10:00)
[2017-12-05] MEDS: ACETAMINOPHEN 325 MG TAB PO PRN (10:00)
[2017-12-05] MEDS: DOCUSATE SOD 100 MG CAP PO SCH (10:38)
[2017-12-05] MEDS: MULTIPLE VITAMIN TAB PO SCH (10:39)
[2017-12-05] MEDS: NIFEdipine ER 30 MG TAB PO SCH (10:40)
[2017-12-05] MEDS: PANTOPRAZOLE 40 MG TAB PO SCH (10:40)
[2017-12-05] MEDS: CINACALCET HYDROCHLORIDE 30 MG TAB PO SCH (10:48)
[2017-12-05 13:00] VITALS: BP 155/68
[2017-12-05] MEDS: ONDANSETRON HCL 4 MG/2 ML VIAL IV PRN (16:12)
[2017-12-05 16:24] VITALS: BP 155/68
== END 2017-12-05 17:35 | disposition home or self-care (01) | DRG 391 ==
LOC: ER 05:24 → OVERFLOW 05:25 → EAST 19:43
PROVIDERS: ADMIT Internal Medicine; ATTEND Family Medicine
PROC: 5A1D70Z Performance of Urinary Filtration, Intermittent, Less than 6 Hours Per Day (ICD-10-PCS; principal; 2017-12-04)
DX: K59.09 Other constipation (principal); N18.6 End stage renal disease; I13.2 Hypertensive heart and chronic kidney disease with heart failure and with stage 5 chronic kidney disease, or end stage renal disease; E44.0 Moderate protein-calorie malnutrition; E10.649 Type 1 diabetes mellitus with hypoglycemia without coma; E10.21 Type 1 diabetes mellitus with diabetic nephropathy; I50.32 Chronic diastolic (congestive) heart failure; N39.0 Urinary tract infection, site not specified; E87.1 Hypo-osmolality and hyponatremia; Z68.42 Body mass index [BMI] 45.0-49.9, adult; R10.9 Unspecified abdominal pain; E10.22 Type 1 diabetes mellitus with diabetic chronic kidney disease; E66.9 Obesity, unspecified; D63.1 Anemia in chronic kidney disease; E83.41 Hypermagnesemia; E83.51 Hypocalcemia; K57.30 Diverticulosis of large intestine without perforation or abscess without bleeding; Z82.49 Family history of ischemic heart disease and other diseases of the circulatory system; Z83.3 Family history of diabetes mellitus; Z89.429 Acquired absence of other toe(s), unspecified side; Z99.2 Dependence on renal dialysis; Z79.4 Long term (current) use of insulin; Z89.422 Acquired absence of other left toe(s); Z89.421 Acquired absence of other right toe(s)
CPT/HCPCS: 36415; 71045; 74176; 80053; 80202; 81001; 82150; 82962; 83036; 83605; 83690; 83735; 84484; 85025; 87040; 87081; 87086; 90935; 93005; 93971; 96374; J0885; J1815; J2405; J7060